=== PATIENT | male | born 1985 | race Caucasian/White ===

== ENCOUNTER 2017-01-16 13:31 | Emergency (ER) | payer OTHER ==
--- NOTE | ~2017-01-16 | EKG ---
PATIENT: BERNADETTE FIELDS UNIT #: [id number] Ventricular Rate: 104 BPM Atrial Rate: 104 BPM P-R Interval: 142 ms QRS Duration: 78 ms Q-T Interval: 316 ms QTC Calculation(Bezet): 415 ms P [place]: 47 degrees Calculated R [place]: 4 degrees Calculated T [place]: 41 degrees Diagnosis Line: Sinus tachycardia Diagnosis Line: Otherwise normal ECG Diagnosis Line: No previous ECGs available Diagnosis Line: Confirmed by RAIN MICHEL MD ([id number]) on Diagnosis Line: 03/03/2017 6:58:06 AM INTERPRETING MD: APOLONIA
--- NOTE | ~2017-01-16 | CR72 ---
[facility]. [facility] A Service of [facility] & [facility] RADIOLOGY TEXT RESULTS PATIENT: BERNADETTE FIELDS LOCATION: SED : 89 UNIT #: [id number] AGE: [address]: Eliu Morrow DO SEX: M ORDER DR: [id number] [place] [address] [id number] E MR#: [id number] Acc #: [id number] NAME: BERNADETTE FIELDS : 1985 SEX: M STUDY DATE/TIME: 01/16/2017 13:09 UNIT: SED ROOM: STUDY DESCRIPTION: CR Chest Single View Portable Attending Physician: Eliu Morrow Ordering Physician: Physician Non-Staff Primary Care Physician: Primary Care Physician No MEDICAL IMAGING REPORT This report is preliminary unless electronic signature is present. EXAM Chest x-ray portable, 01/16/2017 HISTORY Chest pain. COMMENT Single frontal portable view of the chest timed 13:09 01/16/2017 reviewed. No prior. Heart size is normal. Mild elevation of the right hemidiaphragm. No pleural effusion. No acute infiltrate. No acute congestive failure. No pneumothorax. IMPRESSION Mild elevation right hemidiaphragm, otherwise no active disease. No comparison film. Dictated by... Farhana Ponce M.D. THIS IS AN ELECTRONICALLY VERIFIED REPORT Farhana Ponce M.D. at 01/17/2017 11:39 AM SHERLEY/chau TD: 01/17/2017 01:18 JOB #: [id number] MEDICAL IMAGING REPORT
[2017-01-16 13:27] LABS: POC - CKMB 1.1 ng/mL (0.0-7.9); POC - TROPONIN <0.05 ng/mL (<=0.05)
[~2017-01-16 13:31] MED LIST: KEPPRA750 MG PO; LISINOPRIL PO; LORTAB 5-325 M1 EACH PO; NEURONTIN; PRILOSEC PO
[2017-01-16 14:20] LABS: BASOPHIL# 0.1 X10e3 (0-0.3); BASOPHIL% 1.1 % (0-2.5); EOSINOPHIL# 0.2 X10e3 (0-0.7); EOSINOPHIL% 2.6 % (0.0-7.0); HEMOGLOBIN 14.8 gm/dL (13.0-16.0); LYMPHOCYTE# 1.6 X10e3 (1.0-3.5); LYMPHOCYTE% 18.4 % (17.0-45.0); MEAN CELL VOLUME 99.6 FL (83-96); MEAN CORPUSCULAR HGB CONC 32.1 g/dL (30-36); MEAN PLATELET VOLUME 7.9 FL (6.5-11.5); MONOCYTE# 0.9 X10e3 (0-1.0); MONOCYTE% 10.9 % (3.0-12.0); NEUTROPHIL# 5.7 X10e3 (1.5-7.1); PLATELET COUNT 136 X10e3 (140-420); RED BLOOD COUNT 4.62 X10e (3.90-5.60); RED CELL DISTRIBUTION WIDTH 14.7 % (11.0-15.5); WHITE BLOOD COUNT 8.5 X10e3 (4.0-10.5)
[2017-01-16 14:27] LABS: DIFF IND NO
[2017-01-16 14:43] LABS: PROTHROMBIN TIME (PATIENT) 11.3 SECONDS (9.5-12.4)
[2017-01-16 14:51] LABS: PARTIAL THROMBOPLASTIN TIME 27.4 SECONDS (25.6-38.1)
[2017-01-16 14:52] LABS: ALKALINE PHOSPHATASE 112 U/L (32-92); ALT (SGPT) 129 U/L (10-40); AST (SGOT) 93 U/L (10-42); BILIRUBIN, DIRECT 0.2 mg/dL (0.0-0.2); BILIRUBIN,INDIRECT 0.7 mg/dL (0.0-0.9); BILIRUBIN,TOTAL 0.9 mg/dL (0.2-2.0); BLOOD UREA NITROGEN 19 mg/dL (9-23); CALCIUM SERUM 8.5 mg/dL (8.4-10.2); CARBON DIOXIDE 25 mmol/L (22-31); CHLORIDE 102 mmol/L (100-111); GLOM FILT RATE Estimated ABOVE60 mL/min (>60); GLUCOSE FASTING 187 mg/dL (70-110); POTASSIUM 3.4 mmol/L (3.5-5.1); SODIUM 136 mmol/L (135-145)
[2017-01-16 16:12] LABS: POC - CKMB 1.1 ng/mL (0.0-7.9)
[2017-01-16 16:13] LABS: POC - TROPONIN <0.05 ng/mL (<=0.05)
== END 2017-01-16 17:32 | disposition home or self-care (01) ==
LOC: SED 13:31
PROVIDERS: Emergency Medicine
DX: F41.9 Anxiety disorder, unspecified (principal); R07.9 Chest pain, unspecified; I10 Essential (primary) hypertension; Z91.19 Patient's noncompliance with other medical treatment and regimen; G40.909 Epilepsy, unspecified, not intractable, without status epilepticus; F17.200 Nicotine dependence, unspecified, uncomplicated
CPT/HCPCS: 36415; 71010; 80048; 80076; 82553; 83874; 84484; 85025; 85610; 85730; 93005; 99284

== ENCOUNTER 2017-03-22 03:01 | Emergency (ER) | payer OTHER ==
--- NOTE | ~2017-03-22 | EKG ---
PATIENT: BERNADETTE FIELDS UNIT #: [id number] Ventricular Rate: 110 BPM Atrial Rate: 110 BPM P-R Interval: 138 ms QRS Duration: 80 ms Q-T Interval: 316 ms QTC Calculation(Bezet): 427 ms P [place]: 61 degrees Calculated R [place]: 16 degrees Calculated T [place]: 52 degrees Diagnosis Line: Sinus tachycardia Diagnosis Line: Otherwise normal ECG Diagnosis Line: When compared with ECG of 16-JAN-2017 11:57, Diagnosis Line: No significant change was found Diagnosis Line: Confirmed by ALLIE MAN MD ([id number]) on 03/23/2017 Diagnosis Line: 9:40:41 AM INTERPRETING MD: DONOVAN WILLETT
[2017-03-22] MEDS ORDERED: ATORVASTATIN CA10 MG PO (03:10)
[2017-03-22 03:46] LABS: URINE SOURCE CLEAN CATCH
[2017-03-22 03:47] LABS: BASOPHIL# 0.1 X10e3 (0-0.3); BASOPHIL% 1.3 % (0-2.5); EOSINOPHIL# 0.2 X10e3 (0-0.7); EOSINOPHIL% 2.4 % (0.0-7.0); HEMATOCRIT 44.6 % (38.0-50.0); LYMPHOCYTE# 2.1 X10e3 (1.0-3.5); LYMPHOCYTE% 21.6 % (17.0-45.0); MEAN CELL VOLUME 93.1 FL (83-96); MEAN CORPUSCULAR HEMOGLOBIN 31.4 PG (28-34); MEAN CORPUSCULAR HGB CONC 33.7 g/dL (30-36); MEAN PLATELET VOLUME 7.7 FL (6.5-11.5); MONOCYTE# 0.8 X10e3 (0-1.0); MONOCYTE% 8.6 % (3.0-12.0); NEUTROPHIL# 6.4 X10e3 (1.5-7.1); NEUTROPHIL% 66.1 % (40-75); PLATELET COUNT 157 X10e3 (140-420); RED BLOOD COUNT 4.79 X10e (3.90-5.60); RED CELL DISTRIBUTION WIDTH 14.2 % (11.0-15.5); WHITE BLOOD COUNT 9.6 X10e3 (4.0-10.5)
[2017-03-22 03:49] LABS: DIFF IND NO
[2017-03-22 03:49] LABS: URINE APPEARANCE CLEAR; URINE BILIRUBIN NEG (NEG); URINE BLOOD 2+ (NEG); URINE COLOR YELLOW; URINE GLUCOSE NEG (NORM); URINE KETONE NEG (NEG); URINE LEUKOCYTE ESTERASE NEG (NEG); URINE NITRATE NEG (NEG); URINE PROTEIN 3+ (NEG); URINE SPECIFIC GRAVITY 1.025 (1.003-1.035); URINE UROBILINOGEN 0.2 MG/DL (NORM)
[2017-03-22 03:50] LABS: MICRO INDICATED? YES; URINE WBC 0-2 /[HPF] (0-5)
[2017-03-22 03:51] LABS: CULTURE INDICATED? NO; URINE BACTERIA NEG (NEG); URINE MUCUS PRESENT; URINE SQUAMOUS EPITHELIAL CELL FEW /[HPF]
[2017-03-22 03:59] LABS: AMPHETAMINE NEG (NEG); BARBITURATES NEG (NEG); BENZODIAZEPINES NEG (NEG); COCAINE NEG (NEG); MARIJUANA NEG (NEG); OPIATES NEG (NEG); TRICYCLIC ANTIDEPRESSANTS NEG (NEG); U METHADONE NEG (NEG)
[2017-03-22 04:02] LABS: CALCIUM SERUM 9.4 mg/dL (8.4-10.2); GLOM FILT RATE Estimated 101.3 mL/min (>60); POTASSIUM 3.4 mmol/L (3.5-5.1)
[2017-03-22 04:11] LABS: POC - CKMB 1.7 ng/mL (0.0-7.9); POC - TROPONIN <0.05 ng/mL (<=0.05)
== END 2017-03-22 05:42 | disposition home or self-care (01) ==
LOC: SED 03:01
PROVIDERS: Emergency Medicine
DX: F41.9 Anxiety disorder, unspecified (principal); F10.239 Alcohol dependence with withdrawal, unspecified; E11.9 Type 2 diabetes mellitus without complications; Z79.899 Other long term (current) drug therapy
CPT/HCPCS: 36415; 80048; 80307; 81003; 82553; 84484; 85025; 93005; 96361; 96365; 96374; 96375; 99284; C9113; G0480; J1953; J2060